=== PATIENT | female | born 1945 | race Hispanic/Latino ===

== ENCOUNTER 2018-08-01 13:05 | Emergency (ER) | payer OTHER ==
[~2018-08-01 13:05] MED LIST: CALC600T12 PO; ERGO400T3 PO; EZET10 PO
[2018-08-01 13:30] LABS: BASOPHILS % (AUTO) 0.4 % (0.0-5.0); EOSINOPHILS % (AUTO) 0.4 % (0.0-8.0); LYMPHOCYTES % (AUTO) 21.7 % (21.0-51.0); MEAN CORPUSCULAR HEMOGLOBIN 31.1 pg (27.0-33.0); MEAN CORPUSCULAR HGB CONC 34.6 g/dL (32.0-36.0); MEAN CORPUSCULAR VOLUME 89.8 fL (79-99); MONOCYTES % (AUTO) 4.6 % (3.0-13.0); NEUTROPHILS % (AUTO) 72.9 % (40.0-77.0); PLATELET COUNT (AUTO) 212 K/uL (130-400); RED BLOOD CELL COUNT(AUTO) 4.46 MIL/uL (4.00-5.50); RED CELL DISTRIBUTION WIDTH 13.2 % (11.0-15.5); WHITE BLOOD COUNT (AUTO) 5.2 K/uL (4.8-10.8)
[2018-08-01 13:39] LABS: APPEARANCE,URINE Clear (CLEAR); BILIRUBIN,URINE Negative (NEGATIVE); COLOR,URINE Yellow (YELLOW); GLUCOSE, URINE (UA) Negative (NEGATIVE); KETONES,URINE Negative (NEGATIVE); LEUKOCYTE ESTERASE ,URINE Negative (NEGATIVE); NITRATE,URINE Negative (NEGATIVE); OCCULT BLOOD,URINE Negative (NEGATIVE); PROTEIN,URINE Negative (NEGATIVE); UROBILINOGEN,URINE 0.2 mg/dL (0.2-1.0)
[2018-08-01 13:48] LABS: CREATININE 0.7 mg/dL (0.5-1.5)
[2018-08-01 13:56] LABS: ALBUMIN 4.2 g/dL (3.5-5.0); BILIRUBIN,TOTAL 0.4 mg/dL (0.2-1.0); TOTAL PROTEIN, SERUM 7.4 g/dL (6.0-8.3)
[2018-08-01] MEDS ORDERED: SODIUM CHLORIDE 0.9% 1000ML 1,000 ML IV ONE (14:17)
[2018-08-01] MEDS ORDERED: ONDANSETRON HCL 4 MG/2 ML VIAL ONE (14:17)
== END 2018-08-01 16:18 | disposition home or self-care (01) ==
LOC: EDH 13:05
DX: R55 Syncope and collapse (principal); E78.5 Hyperlipidemia, unspecified
CPT/HCPCS: 36415; 80053; 81003; 84484; 85025; 93005; 96361; 96374; 99285; J2405; J7030

== ENCOUNTER → 2019-03-22 | Outpatient (CLI) | payer OTHER ==
[~2019-03-22] MED LIST changes: -EZET10 PO; +EZET10TA13 PO
== END | disposition home or self-care (01) ==
LOC: RAH 08:26
PROVIDERS: ATTEND Family Medicine
DX: Z12.31 Encounter for screening mammogram for malignant neoplasm of breast (principal); R92.1 Mammographic calcification found on diagnostic imaging of breast
CPT/HCPCS: 77067

== ENCOUNTER → 2020-05-21 | Outpatient (CLI) | payer OTHER ==
[~2020-05-21] MED LIST changes: -CALC600T12 PO; +CALC600T15 PO
== END | disposition home or self-care (01) ==
LOC: RAH 13:00
PROVIDERS: ATTEND Family Medicine
DX: Z13.6 Encounter for screening for cardiovascular disorders (principal)
CPT/HCPCS: 75571

== ENCOUNTER → 2021-08-11 | Outpatient (CLI) | payer OTHER ==
[~2021-08-11] MED LIST changes: +CALC-1125 PO; -CALC600T15 PO
== END | disposition home or self-care (01) ==
LOC: RAH 13:24
PROVIDERS: ATTEND Family Medicine
DX: Z12.31 Encounter for screening mammogram for malignant neoplasm of breast (principal)
CPT/HCPCS: 77067

== ENCOUNTER → 2023-01-09 | Outpatient (CLI) | payer OTHER ==
[~2023-01-09] MED LIST changes: -EZET10TA13 PO; +EZET10TA81 PO
== END | disposition home or self-care (01) ==
LOC: CANPRECLI → RAH 09:07
PROVIDERS: ATTEND Family Medicine
DX: Z12.31 Encounter for screening mammogram for malignant neoplasm of breast (principal)
CPT/HCPCS: 77067

== ENCOUNTER → 2024-01-12 | Outpatient (CLI) | payer OTHER | END | disposition home or self-care (01) | LOC: RAH 13:41 | PROVIDERS: ATTEND Family Medicine | DX: Z12.31 Encounter for screening mammogram for malignant neoplasm of breast (principal) | CPT/HCPCS: 77067 ==

== ENCOUNTER 2024-03-31 15:43 | Emergency (ER) | payer OTHER, MEDICARE ==
[~2024-03-31] VITALS: Ht 160 cm; Wt 63.5 kg
--- NOTE | 2024-03-31 16:37 | ERN ---
General Chief Complaint: Fatigue Stated Complaint: WEAKNESS Time Seen by MD: 15:44 Source: patient History of Present Illness Initial Comments Patient is a 78-year-old female coming in to be evaluated for URI. Symptoms. Per patient the symptoms began two days ago. URI symptoms include body aches cough and congestion. Currently no fever or chills present. Allergies: Coded Allergies: No Known Drug Allergies (Unverified Allergy, Unknown, 12/09/14) Home Meds Reported Medications Ergocalciferol (Vitamin D2) (Vitamin D) 400 Unit Tablet, 400 UNIT PO BID, TAB 12/09/14 Calcium Carbonate (Calcium) 600 Mg Tablet, 1200 MG PO AM, TAB 12/09/14 Ezetimibe (Zetia) 10 Mg Tablet, 10 MG PO AM, TAB 12/09/14 Past Medical History Past Medical History: High Cholesterol, Hypothyroid Past Surgical History: Unknown ROS Dictation CONSTITUTIONAL: No chills, no fever, no weakness, no diaphoresis, malaise. HEAD/FACE: No signs of trauma. EENT: No eye pain, no blurred vision, no tearing, no double vision, no ear pain, no ear discharge, no nose pain, no nasal congestion, no throat pain, no throat swelling, no mouth pain. RESPIRATORY: No cough, no orthopnea, no SOB, no stridor, no wheezing. CARDIOVASCULAR: No chest pain, no edema, no palpitations, no syncope. GASTROINTESTINAL/ABDOMINAL: No abdominal pain, no constipation, no diarrhea, no nausea, no vomiting. GENITOURINARY: No abnormal discharge, no dysuria, no frequent urination, no hematuria. No complaints of pain in the genitals. MUSCULOSKELETAL: No back pain, no gout, no joint pain, no joint swelling, no muscle pain, no muscle stiffness, no neck pain. INTEGUMENTARY: No change in color, no change in hair/nails, no dryness, no lesion, no lumps, no rash. NEUROLOGICAL/PSYCH: No anxiety, not depressed, no emotional problem, no headache, no numbness, no pre-existing deficit, no history of seizures, no tremors, no weakness. HEMATOLOGIC/LYMPHATIC: Not anemic, no history of blood clots, no apparent bleeding, no bruising, glands not swollen. All Systems Negative, Except as Noted. Physical Exam Physical Exam Dictation VITAL SIGNS: Reviewed. GENERAL APPEARANCE: Alert, oriented x3, no acute distress, obese. HEAD AND FACE: Non-traumatic. EYES: PERRL, pink conjunctivas, eyelid no trauma, anterior chamber clear. EARS: Pinnas intact and no signs of trauma or erythema. Ear canals clear and no discharge. TMs no erythema. NOSE: No discharge, no bleeding. OROPHARYNX: Mouth normal, teeth no caries, tongue pink. Pharynx clear, no erythema. Tonsils no exudates, no abscesses noted. Mucous membrane moist. NECK: Supple, non-tender, no thyromegaly, no masses, no JVD, no bruits. BREAST: Deferred. CHEST: No tenderness, no crepitus, no paradoxical movement, no retractions. LUNGS: Clear, well-ventilated, symmetric, no rales, no wheezing, no rhonchi, no stridor, good breath sounds bilaterally. HEART: Regular rate, regular rhythm, no murmur, no gallops. VASCULAR: No peripheral edema. ABDOMEN: Soft, positive bowel sounds, nondistended, no guarding, nontender, no rebound, no masses no hepatomegaly, no splenomegaly, no Wesley's sign, no hernias. RECTAL: Deferred. GENITAL: Deferred. NEUROLOGICAL: Normal speech, gross motor function intact, gross sensory function intact. MUSCULOSKELETAL: Neck nontender, full range of motion, back nontender, full range of motion. EXTREMITIES: Nontender, full range of motion. SKIN: Color pink, dry, no turgor, no rash, no lacerations, no abrasions, no contusions. LYMPHATICS: Deferred. Results Laboratory and Microbiology Lab and Micro Result Laboratory Tests Test 03/31/24 16:31 03/31/24 18:11 White Blood Count 4.8 K/uL (4.8-10.8) Red Blood Count 4.37 MIL/uL (4.00-5.50) Hemoglobin 13.3 g/dL (12.0-16.0) Hematocrit 40.1 % (36-48) Mean Corpuscular Volume 91.8 fL (79-99) Mean Corpuscular Hemoglobin 30.4 pg (27.0-33.0) Mean Corpuscular Hemoglobin Concent 33.2 g/dL (32.0-36.0) Red Cell Distribution Width 12.6 % (11.0-15.5) Platelet Count 156 K/uL (130-400) Mean Platelet Volume 9.2 fL (7.5-10.5) Immature Granulocyte % (Auto) 0.4 % (0-1) Neutrophils (%) (Auto) 69.7 % (40.0-77.0) Lymphocytes (%) (Auto) 15.9 % (21.0-51.0) L Monocytes (%) (Auto) 12.4 % (3.0-13.0) Eosinophils (%) (Auto) 1.4 % (0.0-8.0) Basophils (%) (Auto) 0.2 % (0.0-5.0) Neutrophils # (Auto) 3.4 K/uL (1.8-7.7) Lymphocytes # (Auto) 0.8 K/uL (1.0-4.8) L Monocytes # (Auto) 0.6 K/uL (0.1-1.0) Eosinophils # (Auto) 0.07 K/uL (0.00-0.70) Basophils # (Auto) 0.01 K/uL (0.00-0.20) Absolute Immature Granulocyte (auto 0.02 K/uL (0-1) Nucleated Red Blood Cells 0.0 % (0.0-0.19) Sodium Level 133 mmol/L (136-145) L Potassium Level 3.4 mmol/L (3.5-5.1) L Chloride Level 97 mmol/L (101-111) L Carbon Dioxide Level 31 mmol/L (21-32) Blood Urea Nitrogen 7 mg/dL (7-18) Creatinine 0.7 mg/dL (0.5-1.0) Glomerular Filtration Rate Calc 90 mL/min (>90) Random Glucose 94 mg/dL (70-105) Total Calcium 8.8 mg/dL (8.5-10.1) Magnesium Level 1.50 mg/dL (1.80-2.40) L Total Creatine Kinase 64 U/L (21-232) # Troponin I High Sensitivity 8 ng/L (4-50) B-Type Natriuretic Peptide 46 pg/mL (0-100) Urine Color LIGHT-YELLOW (YELLOW) Urine Appearance CLEAR (CLEAR) Urine pH 8.0 (5.0-8.0) Urine Specific [place] 1.014 (1.001-1.031) Urine Protein NEGATIVE mg/dL (NEGATIVE) Urine Glucose (UA) NEGATIVE mg/dL (NEGATIVE) Urine Ketones NEGATIVE mg/dL (NEGATIVE) Urine Occult Blood NEGATIVE (NEGATIVE) Urine Nitrate NEGATIVE (NEGATIVE) Urine Bilirubin NEGATIVE mg/dL (NEGATIVE) Urine Urobilinogen 0.2 mg/dL (0.2-1.0) Urine Leukocyte Esterase 25 Sharan/uL (NEGATIVE) H Urine RBC 0-1 /HPF (0-1) Urine WBC 6-10 /HPF (0-1) H Urine Squamous Epithelial Cells RARE /HPF (0-2) Urine Bacteria RARE /HPF (None Seen) Influenza Type A Antigen Negative For Type A Influenza Type B Antigen Negative For Type B SARS-CoV-2, RNA, NAAT NEGATIVE SARS CoV-2 Labs Reviewed?: Yes EKG/XRAY/US/CT/MRI EKG Comment 03/31/2024 time 4:21 p.m. Ventricular rate 95 Sinus rhythm [place] [address] wave elevation or depression MDM MDM: Differential diagnosis: UTI, URI, COVID, FLU PATIENT IS A 78-YEAR-OLD FEMALE COMING IN TO BE EVALUATED FOR FEVER AND BODY ACHES. LABORATORY WORKUP NEGATIVE FOR ACUTE FINDINGS POSITIVE FOR URINARY TRACT INFECTION. PATIENT WILL BE DISCHARGED WITH ORAL ANTIBIOTICS. ED Course Orders Procedure Category Date Status Time Cbc With Differential LAB 03/31/24 Complete 16:16 B-Type Natriuretic LAB 03/31/24 Complete Peptide 16:16 Chest 1vw RAD 03/31/24 Resulted 16:16 12 Lead Ekg Tracing- EKG 03/31/24 Complete Technical 16:16 0.9%Nacl 1000ml (Ns PHA 03/31/24 Complete 1000ml) 16:30 Magnesium LAB 03/31/24 Complete 16:16 Creatine Kinase, Total LAB 03/31/24 Complete 16:16 Troponin I High LAB 03/31/24 Complete Sensitivity 16:16 Urinalysis Profile LAB 03/31/24 Complete 16:16 Basic Metabolic Panel LAB 03/31/24 Complete 16:16 Covid Rna Naat LAB 03/31/24 Complete 16:16 Influenza Type A & B, LAB 03/31/24 Complete Rapid 16:16 Acetaminophen 500mg PHA 03/31/24 Complete Tab (Tylenol 500mg T 16:30 Magnesium 2gm Premix PHA 03/31/24 Complete 50ml (Magnesium 2gm 17:45 Culture Urine NAI 03/31/24 Logged 18:42 Current Medications Medications (Trade) Dose Ordered Sig/Yuliet Route PRN Reason Start Time Stop Time Status Last Admin Dose Admin Acetaminophen (TYLenol 500MG TAB) 1,000 mg ONCE ONCE PO 03/31/24 16:30 03/31/24 16:31 DC 03/31/24 16:44 Magnesium Sulfate 50 ml @ 0 mls/hr PROTOCOL STAT IV 03/31/24 17:45 03/31/24 17:46 DC 03/31/24 18:42 Sodium Chloride 1,000 ml @ 0 mls/hr ONCE ONCE IV 03/31/24 16:30 03/31/24 16:31 DC 03/31/24 16:43 Vital Signs Date Time Temp Pulse Resp B/P (MAP) Pulse Ox O2 Delivery O2 Flow Rate FiO2 03/31/24 18:38 102.6 94 20 120/45 92 Room Air* 0 21 03/31/24 16:44 100.0 03/31/24 16:06 100.0 99 20 163/64 99 Room Air* 0 21 03/31/24 15:44 99.0 102 20 136/45 96 Room Air 0 DX & DISP Disposition: Discharge Departure Impression: Primary Impression: UTI (urinary tract infection) Condition: Stable Scripts Cephalexin Monohydrate (Keflex) 500 Mg Cap 1 CAP PO BID for 10 Days, #20 CAP 0 Refills Prov: OMID COKER MD 03/31/24 Additional Instructions: FOLLOW-UP WITH PRIMARY CARE PROVIDER IN 1 TO 2 DAYS. TAKE MEDICATIONS DIRECTED HERE IN THE EMERGENCY ROOM. OKAY TO CONTINUE HOME MEDICATIONS UNLESS OTHERWISE DISCUSSED DURING YOUR VISIT IN THE EMERGENCY ROOM TODAY. RETURN TO YOUR NEAREST EMERGENCY ROOM IF SYMPTOMS WORSEN OR IF THERE IS NO IMPROVEMENT. CALL 911 IF YOU NEED IMMEDIATE ASSISTANCE. TAKE TYLENOL [id number] NEEDED AND IF NO CONTRAINDICATIONS ARE PRESENT. INCREASE ORAL HYDRATION. A WOUND CULTURE OR URINE CULTURE WAS ORDERED HERE IN THE EMERGENCY ROOM DEPARTMENT PLEASE FOLLOW-UP WITH PRIMARY CARE PROVIDER AND ADVISE THEM TO GET REPEAT PORTS FROM OUR FACILITY. IF YOU HAD ANY BERRY WRAP/SPLINTS THAT WERE APPLIED HERE, PLEASE DO NOT REMOVE THEM UNTIL YOU SEE YOUR PRIMARY CARE OR SPECIALTY. REFERRALS: Referrals: LUIS M PATRICK MD (PCP) Time of Disposition: 18:54 OMID COKER MD Mar 31, 2024 16:37
[2024-03-31 16:40] LABS: BASOPHILS # (AUTO) 0.01 K/uL (0.00-0.20); BASOPHILS % (AUTO) 0.2 % (0.0-5.0); EOSINOPHILS # (AUTO) 0.07 K/uL (0.00-0.70); EOSINOPHILS % (AUTO) 1.4 % (0.0-8.0); HEMATOCRIT 40.1 % (36-48); IMMATURE GRANULOCYTE ABSOLUTE 0.02 K/uL (0-1); LYMPHOCYTES # (AUTO) 0.8 K/uL (1.0-4.8); LYMPHOCYTES % (AUTO) 15.9 % (21.0-51.0); MEAN CORPUSCULAR HEMOGLOBIN 30.4 pg (27.0-33.0); MEAN CORPUSCULAR HGB CONC 33.2 g/dL (32.0-36.0); MEAN CORPUSCULAR VOLUME 91.8 fL (79-99); MONOCYTES # (AUTO) 0.6 K/uL (0.1-1.0); MONOCYTES % (AUTO) 12.4 % (3.0-13.0); NEUTROPHILS # (AUTO) 3.4 K/uL (1.8-7.7); NEUTROPHILS % (AUTO) 69.7 % (40.0-77.0); PLATELET COUNT (AUTO) 156 K/uL (130-400); RED BLOOD CELL COUNT(AUTO) 4.37 MIL/uL (4.00-5.50); RED CELL DISTRIBUTION WIDTH 12.6 % (11.0-15.5); WHITE BLOOD COUNT (AUTO) 4.8 K/uL (4.8-10.8)
[2024-03-31] MEDS: 0.9%NACL 1000ML 1,000 ML IV ONE (16:43)
[2024-03-31 16:44] VITALS: TEMP 100.1
[2024-03-31] MEDS: acetaMINOPHEN 500 MG TABLET PO ONE (16:44)
[2024-03-31 16:46] LABS: CREATININE 0.7 mg/dL (0.5-1.0); POTASSIUM 3.4 mmol/L (3.5-5.1)
[2024-03-31 16:56] LABS: MAGNESIUM 1.5 mg/dL (1.80-2.40)
[2024-03-31 17:01] LABS: B-TYPE NATRIURETIC PEPTIDE 46 pg/mL (0-100)
--- NOTE | 2024-03-31 17:05 | EKG ---
[facility] Test Date: 2024-03-31 Test Time: 16:21:48 Pat Name: HUMZA LUNSFORD Department: [facility] Room: Gender: F Network Admin: [id number] : 1945 Requested By: OMID COKER Order Number: [id number] Reading MD: Nile Lance Measurements Intervals [place] Rate: 95 P: 30 MI: 148 QRS: -14 QRSD: 82 T: 54 QT: 345 QTc: 434 Interpretive Statements Sinus rhythm Compared to ECG 08/01/2018 13:20:54 No significant changes Electronically Signed On 04-01-2024 18:21:38 COILER OPERATOR by Nile Lnace Please click the below link to view image of tracing.
--- NOTE | 2024-03-31 17:42 | HMCIMG ---
CHEST 1VW HISTORY: Chest pain COMPARISON: None FINDINGS: A frontal projection of the chest was obtained. Prominent interstitial markings are seen with possible superimposed infiltrates. The heart is normal in size. Degenerative changes are seen. No evidence of aortic calcification is seen. IMPRESSION: 1. Prominent interstitial markings are seen with possible superimposed infiltrates.
[2024-03-31 18:34] LABS: APPEARANCE,URINE CLEAR (CLEAR); BILIRUBIN,URINE NEGATIVE (NEGATIVE); COLOR,URINE LIGHT-YELLOW (YELLOW); GLUCOSE, URINE (UA) NEGATIVE (NEGATIVE); KETONES,URINE NEGATIVE (NEGATIVE); LEUKOCYTE ESTERASE ,URINE 25 Leu/uL (NEGATIVE); NITRATE,URINE NEGATIVE (NEGATIVE); OCCULT BLOOD,URINE NEGATIVE (NEGATIVE); PROTEIN,URINE NEGATIVE (NEGATIVE); UROBILINOGEN,URINE 0.2 mg/dL (0.2-1.0)
[2024-03-31 18:38] VITALS: BP 120/45; PULSE 94; RESP 20; TEMP 102.5; O2SAT 92
[2024-03-31 18:38] LABS: ADD UA MICROSCOPIC YES
[2024-03-31 18:41] LABS: BACTERIA,URINE RARE /HPF (None Seen); MUCUS,URINE RARE LPF (None Seen); RBC,URINE 0-1 /HPF (0-1); SQUAMOUS EPITHELIAL CELL,UR RARE /HPF (0-2)
[2024-03-31] MEDS: MAGNESIUM 2GM PREMIX 50ML 50 ML IV STA (18:42)
[2024-03-31 18:48] LABS: SARS-CoV-2, RNA, NAAT NEGATIVE SARS CoV-2 (NEGATIVE)
[2024-03-31 18:52] LABS: INFLUENZA TYPE A Negative For Type A (NEGATIVE); INFLUENZA TYPE B Negative For Type B (NEGATIVE)
[2024-03-31] MEDS ORDERED: CEPH500B PO (18:55)
--- NOTE | 2024-03-31 18:59 | NUR ---
PT STABLE, AAOX4, PT IN NO DISTRESS, VITALS WNL NO C/O PAIN NOW, PT GIVEN INSTRUCTIONS FOR HOME MEDICATED PRIOR TO DISCHARGE, IV REMOVED CATHETER INTACT. PT TAKEN OUT IN W/C DRIVEN HOME BY SISTER.
== END 2024-03-31 19:05 | disposition home or self-care (01) ==
LOC: EDH 15:43
DX: N39.0 Urinary tract infection, site not specified (principal); E03.9 Hypothyroidism, unspecified; E78.00 Pure hypercholesterolemia, unspecified; Z79.899 Other long term (current) drug therapy; Z20.822 Contact with and (suspected) exposure to COVID-19
CPT/HCPCS: 99285; 96365; 71045; 87635; 96361 ×2; 82550; 83735; 84484; 80048; 83880; 85025; 87086 ×2; 87186; 87804 ×2; 81001; 36415; 93005; J3475; J7030

== ENCOUNTER 2024-04-03 17:05 | Emergency (ER) | payer OTHER, MEDICARE ==
[~2024-04-03] VITALS: Ht 144.8 cm; Wt 55.3 kg
[~2024-04-03 17:05] MED LIST changes: +CEPH500B PO
[2024-04-03 18:07] VITALS: BP 148/74; PULSE 74; RESP 20; TEMP 99.4
--- NOTE | 2024-04-03 18:51 | ERN ---
ED Note History of Present Illness Stated Complaint: SENT BY Chief Complaint: Nausea,Vomiting,Diarrhea Time Seen by MD: 18:05 Time Seen by Midlevel: 18:07 Dictation: 78-year-old female who presents to the emergency department with her daughter for evaluation due to reported having been sent here by her PCP due to having persistent fever for the past 2 days. She states that she has had a temperature as high as 102 F. the patient reports having an occasional nonproductive cough around with 2 episodes of diarrhea. Patient states that she was evaluated in the same facility 2 days ago and was told that she had a urinary tract i nfection. At this time, she denies having any abdominal pain or abdominal cramping associated with this. There is no report of having had contact with anybody with similar symptoms. Upon initial evaluation, the patient presents in no acute distress. Allergies: Coded Allergies: No Known Drug Allergies (Unverified Allergy, Unknown, 12/09/14) Home Meds Active Scripts Cephalexin Monohydrate (Keflex) 500 Mg Cap, 1 CAP PO BID for 10 Days, #20 CAP 0 Refills Prov:OMID COKER MD 03/31/24 Reported Medications Ergocalciferol (Vitamin D2) (Vitamin D) 400 Unit Tablet, 400 UNIT PO BID, TAB 12/09/14 Calcium Carbonate (Calcium) 600 Mg Tablet, 1200 MG PO AM, TAB 12/09/14 Ezetimibe (Zetia) 10 Mg Tablet, 10 MG PO AM, TAB 12/09/14 Past Medical History Past Medical History: High Cholesterol, Hypothyroid Surgical History: Unknown History: Not Applicable RN Note Reviewed/Agreed w/PFSH: Yes Review of System Dictation Constitutional: Fever, chills Respiratory: Nonproductive cough Abdomen/GI: Diarrhea Initial Vital Sign VS Vital Signs Date Time Temp Pulse Resp B/P (MAP) Pulse Ox O2 Delivery O2 Flow Rate FiO2 04/03/24 18:07 99.3 74 20 148/74 99 Room Air Physical Exam Dictation General: awake, alert, NAD Head/Face: Normocephalic, atraumatic Eyes: PERRL, EOMI ENT: Oral mucosa moist Neck: Trachea midline, supple Cardiovascular: RRR, no edema Respiratory: Symmetrical, non-labored Abdomen: Soft, non-tender, non-distended, no guarding. Skin: Warm, dry, good turgor, no rash MS/Extremity: Pulses equal, no cyanosis, neurovascular intact, FROM Neuro: COAx4, GCS 15, steady gait, Psych: Normal behavior, mood, and affect normal ED Course ED Course Orders Procedure Category Date Status Time Cbc With Differential LAB 04/03/24 Logged 18:44 Comprehensive LAB 04/03/24 Logged Metabolic Panel 18:44 Influenza Type A & B, LAB 04/03/24 Logged Rapid 18:45 Vital Signs Date Time Temp Pulse Resp B/P (MAP) Pulse Ox O2 Delivery O2 Flow Rate FiO2 04/03/24 18:07 99.3 74 20 148/74 99 Room Air DX & DISP Departure Condition: Stable Referrals: LUIS M PATRICK MD (PCP) JOSEPHINE WU Apr 03, 2024 18:51
== END 2024-04-03 20:24 | disposition left against medical advice (07) ==
LOC: EDH 17:05
DX: R11.2 Nausea with vomiting, unspecified (principal); R19.7 Diarrhea, unspecified; E03.9 Hypothyroidism, unspecified; E78.00 Pure hypercholesterolemia, unspecified; Z53.21 Procedure and treatment not carried out due to patient leaving prior to being seen by health care provider

== ENCOUNTER → 2025-01-13 | Outpatient (CLI) | payer OTHER ==
--- NOTE | 2025-01-14 13:02 | HMCIMG ---
DIGITAL BILATERAL SCREENING MAMMOGRAM Technique: The digital mammographic examination of both breasts in craniocaudal and mediolateral oblique views along with CAD was obtained. History: This is a 79 years year-old female 2, para2 Ab0. Patient has history of bilateral breast reduction in 1992. Patient has no family history of breast cancer. Patient has no complaint Reference:Prior mammogram from 01/12/2024, 01/09/2023, 08/11/2021, 07/19/2016 are available.. Breast composition: Breast composition C: The breasts are heterogeneously dense, which may obscure small masses. Finding: The digital mammographic examination of both breasts in craniocaudal and mediolateral oblique view along with CAD demonstrates both breasts are geographically heterogeneously dense. There is benign vascular calcification suggesting of atherosclerotic changes. There are solitary benign macrocalcification seen in both breasts.. There is no evidence of any dendritic mass, cluster microcalcification or architectural distortion. The retromammary fat appears to be normal. IMPRESSION: Unchanged from prior mammography. NO RADIOGRAPHIC EVIDENCE OF MALIGNANT CHANGES. WE WOULD RECOMMEND ANNUAL FOLLOW UP WITH TOMOSYNTHESIS UNLESS OTHERWISE CLINICALLY INDICATED. FINAL ASSESSMENT: ACR: BI-RAD- 2. Benign Finding. NOTE: IF A WORK-UP OF THIS PATIENT LEADS TO A BIOPSY, PLEASE FORWARD A COPY OF THE PATHOLOGY REPORT TO OUR OFFICE REQUIRED BY [employer] E[employer]ECTIVE NOVEMBER 27, 1993. A NEGATIVE MAMMOGRAM SHOULD NOT PRECLUDE BIOPSY OF A CLINICALLY PALPABLE SUSPICIOUS MASS, 10% OF BREAST CANCERS ARE MAMMOGRAPHICALLY OCCULT. THIS MAMMOGRAPHY FACILITY IS FULLY ACCREDITED BY THE FOOD AND DRUG ADMINISTRATION (FDA). THANK YOU FOR THIS REFERRAL.
== END | disposition home or self-care (01) ==
LOC: RAH 08:42
PROVIDERS: ATTEND Family Medicine
DX: Z12.31 Encounter for screening mammogram for malignant neoplasm of breast (principal); R92.333 Mammographic heterogeneous density, bilateral breasts
CPT/HCPCS: 77067